=== PATIENT | male | born 1965 | race Caucasian/White ===

== ENCOUNTER 2016-09-15 18:56 | Emergency (ER) | payer BC ==
[~2016-09-15] VITALS: Ht 180.3 cm; Wt 105.0 kg
[~2016-09-15 18:56] MED LIST: HYDR-3583 PO; HYDR50TA94 PO; LEVA500T PO; METR-1 PO; OXYC1TAB36 PO; PAXI20TA PO; VALS160T4 PO; XANA2TAB2 PO
[2016-09-15 18:57] VITALS: BP 139/86; PULSE 72; RESP 24; TEMP 97.7; O2SAT 93
[2016-09-15] MEDS ORDERED: SODIUM CHLOR 0.9% 1000 ML INJ 1,000 ML IV SCH (21:50)
--- NOTE | 2016-09-15 21:58 | PD ---
HPI Chief Complaint: Flank/Kidney Pain Time Seen by Provider: 21:50 Travel History International Travel<30 days: No Contact w/Intl Traveler<30days: No Traveled to known affect area: No History of Present Illness HPI Patient is a 51-year-old male who presents to emergency room with complaints of flank pain. He reports that he was at work today and reports that around 2:30 PM, he had severe pain to his right flank. Patient reports that his flank plain did radiate to his groin, reports that pain has been intermittent in nature. Reports history of kidney stones in the past - reports that he has past his a kidney stone in the past before and did not require urological intervention. Patient with no fevers chills, denies any nausea vomiting this time. Patient denies any dysuria, hematuria, urinary urgency or frequency. PFSH Past Medical History Hx Anticoagulant Therapy: Yes Blood Disorders: No Anxiety: Yes Depression: Yes Heart Rhythm Problems: No Cancer: No Cardiovascular Problems: Yes (HTN) High Cholesterol: No Chemotherapy: No Chest Pain: No Congestive Heart Failure: No Cerebrovascular Accident: No Diabetes: No Diverticulitis: Yes Endocrine: No Gastrointestinal Disorders: Yes (DIVERITICLITIS) Genitourinary: No Hypertension: Yes Immune Disorder: No Implanted Vascular Access Dvce: No Musculoskeletal: No Neurologic: No Psychiatric: Yes Reproductive: No Respiratory: No Tetanus Vaccination: < 5 Years Influenza Vaccination: No Past Surgical History Surgical History: No Previous Surgery Social History Alcohol Use: No Tobacco Use: Yes (ppd-1 2ppd) Substance Use: No Allergies-Medications (Allergen,Severity, Reaction): Coded Allergies: Penicillin (Verified Allergy, Severe, SWELLING, 09/15/16) Reported Meds & Prescriptions Reported Meds & Active Scripts Active Ibuprofen 600 Mg Tab 600 Mg PO Q6H PRN Oxycodone-Acetaminophen 10-325 mg Tab 1 Tab PO Q6H PRN Flagyl (Metronidazole) 500 Mg Tab 500 Mg PO TID Levaquin (Levofloxacin) 500 Mg Tab 500 Mg PO DAILY Reported Hydrocodone-Acetaminophen 10-325 mg Tab 1 Tab PO Q6H PRN Valsartan-Hydrochlorothiazide 160-12.5 Mg Tab 1 Tab PO DAILY Paxil (Paroxetine HCl) 20 Mg Tab 20 Mg PO DAILY Xanax (Alprazolam) 2 Mg Tab 2 Mg PO HS PRN Hydroxyzine HCl 50 Mg Tab 50 Mg PO HS Review of Systems General / Constitutional: No: Fever Eyes: No: Visual changes HENT: No: Headaches Cardiovascular: No: Chest Pain or Discomfort Respiratory: No: Shortness of Breath Gastrointestinal: No: Abdominal Pain Genitourinary: Positive: Flank Pain, No: Dysuria Musculoskeletal: No: Pain Skin: No Rash Neurologic: No: Weakness Psychiatric: No: Depression Endocrine: No: Polydipsia Hematologic/Lymphatic: No: Easy Bruising Physical Exam Narrative GENERAL: Mild distress SKIN: Focused skin assessment warm/dry. HEAD: Atraumatic. Normocephalic. EYES: Pupils equal and round. No scleral icterus. No injection or drainage. ENT: No nasal bleeding or discharge. Mucous membranes pink and moist. NECK: Trachea midline. No JVD. CARDIOVASCULAR: Regular rate and rhythm. No murmur appreciated. RESPIRATORY: No accessory muscle use. Clear to auscultation. Breath sounds equal bilaterally. GASTROINTESTINAL: Abdomen soft, non-tender, nondistended. Patient with right- sided flank pain MUSCULOSKELETAL: No obvious deformities. No clubbing. No cyanosis. No edema. NEUROLOGICAL: Awake and alert. No obvious cranial nerve deficits. Motor grossly within normal limits. Normal speech. PSYCHIATRIC: Appropriate mood and affect; insight and judgment normal. Data Data Last Documented VS Vital Signs Date Time Temp Pulse Resp B/P Pulse Ox O2 Delivery O2 Flow Rate FiO2 09/15/16 21:50 18 09/15/16 18:57 97.7 72 139/86 93 Room Air Orders Complete Blood Count With Diff (09/15/16 21:50) Comprehensive Metabolic Panel (09/15/16 21:50) Urinalysis - C+S If Indicated (09/15/16 21:50) Ct Abd/Pel W/O Iv Contrast (09/15/16 21:50) Iv Access Insert/Monitor (09/15/16 21:50) Ecg Monitoring (09/15/16 21:50) Morphine Inj (Morphine Inj) (09/15/16 22:00) Ondansetron Inj (Zofran Inj) (09/15/16 22:00) Sodium Chlor 0.9% 1000 Ml Inj (Ns 1000 M (09/15/16 21:50) Sodium Chloride 0.9% Flush (Ns Flush) (09/15/16 22:00) Ketorolac Inj (Toradol Inj) (09/16/16 00:00) Labs Laboratory Tests Test 09/15/16 09/15/16 22:30 22:50 White Blood Count 9.0 TH/MM3 Red Blood Count 5.08 MIL/MM3 Hemoglobin 15.1 GM/DL Hematocrit 44.0 % Mean Corpuscular Volume 86.7 FL Mean Corpuscular Hemoglobin 29.7 PG Mean Corpuscular Hemoglobin 34.3 % Concent Red Cell Distribution Width 14.1 % Platelet Count 235 TH/MM3 Mean Platelet Volume 8.7 FL Neutrophils (%) (Auto) 48.0 % Lymphocytes (%) (Auto) 34.2 % Monocytes (%) (Auto) 12.7 % Eosinophils (%) (Auto) 4.1 % Basophils (%) (Auto) 1.0 % Neutrophils # (Auto) 4.3 TH/MM3 Lymphocytes # (Auto) 3.1 TH/MM3 Monocytes # (Auto) 1.1 TH/MM3 Eosinophils # (Auto) 0.4 TH/MM3 Basophils # (Auto) 0.1 TH/MM3 CBC Comment DIFF FINAL Differential Comment Sodium Level 137 MEQ/L Potassium Level 3.7 MEQ/L Chloride Level 102 MEQ/L Carbon Dioxide Level 26.5 MEQ/L Anion Gap 9 MEQ/L Blood Urea Nitrogen 18 MG/DL Creatinine 0.92 MG/DL Estimat Glomerular Filtration 86 ML/MIN Rate Random Glucose 78 MG/DL Calcium Level 9.0 MG/DL Total Bilirubin 0.5 MG/DL Aspartate Amino Transf 82 U/L (AST/SGOT) Alanine Aminotransferase 53 U/L (ALT/SGPT) Alkaline Phosphatase 53 U/L Total Protein 7.2 GM/DL Albumin 3.6 GM/DL Urine Color YELLOW Urine Turbidity CLEAR Urine pH 5.5 Urine Specific [place] 1.022 Urine Protein NEG mg/dL Urine Glucose (UA) NEG mg/dL Urine Ketones NEG mg/dL Urine Occult Blood NEG Urine Nitrite NEG Urine Bilirubin NEG Urine Urobilinogen LESS THAN 2.0 MG/DL Urine Leukocyte Esterase NEG Urine RBC 1 /hpf Urine WBC 1 /hpf Microscopic Urinalysis Comment CULT NOT INDICATED MDM Medical Decision Making Medical Screen Exam Complete: Yes Emergency Medical Condition: Yes Interpretation(s) Vital Signs Date Time Temp Pulse Resp B/P Pulse Ox O2 Delivery O2 Flow Rate FiO2 09/15/16 21:50 18 09/15/16 18:57 97.7 72 24 139/86 93 Room Air Differential Diagnosis Pyelonephritis, kidney stones, cystitis, muscle strain Narrative Course 51-year-old male who presents to emergency room with complaints of right-sided flank pain which started around 2:30 PM this afternoon. Patient reports a flank pain is radiating to his groin, reports that he has intermittent symptoms of radiating pain. Patient reports that he has had kidney stones in the past, reports that his symptoms are similar as well. Patient reports that he has passed his previous stone and did not require urological intervention. He does have history of chronic pain and does take chronic pain medications, he did take oxycodone 10 mg at home with no relief of symptoms UA ordered, labs including BMP ordered to evaluate for renal function. CT of abdomen and pelvis ordered to evaluate for kidney stone vs pyelonephritis CBC & BMP Diagram 09/15/16 22:30 Last Impressions Abdomen/Pelvis CT 09/15/16 2150 Signed Impressions: Service Date/Time: Thursday, September 15, 2016 21:53 - CONCLUSION: 1. Multiple calcified nonobstructing bilateral renal calculi. 2. No acute obstructive uropathy. 3. Bilateral inguinal hernias with the right containing a normal appendix in the left containing only fat. 4. Uncomplicated colonic diverticulosis. 5. Degenerative changes, multilevel spinal stenoses and scoliosis of the lumbar spine. 6. Enlarged prostate with central calcifications. Dave Chavira MD copy of ct report given to patient and I reviewed all incidental findings in detail. patient understands need to follow up with all findings from today. signs and symptoms of when to return to ER was reviewed with patient in detail Diagnosis Primary Impression: Flank pain Additional Impressions: Hyperglycemia Inguinal hernia recurrent bilateral Qualified Code: K40.21 - Bilateral recurrent inguinal hernia without obstruction or gangrene Diverticulosis Qualified Code: K57.90 - Diverticulosis of intestine without bleeding, unspecified intestinal tract location Degenerative arthritis Qualified Code: M47.816 - Osteoarthritis of lumbar spine, unspecified spinal osteoarthritis complication status Enlarged prostate prostate calcification Patient Instructions: Narcotic given in the ED, General Instructions Additional Instructions: Please follow up with your primary care doctor Please bring your CT report to doctor's office for follow-up and all incidental findings from today Return to the emergency room as needed Return to the emergency room if symptoms return or persist Med/Other Pt SpecificInfo: Prescription(s) given Scripts Hydrocodone-Acetaminophen (Lortab)5-325 Mg Tab1 Tab PO Q4H PRN (PAIN) #6 TAB Ref 0 Prov:Yana Mark DO 09/16/16 Ibuprofen 600 Mg [id number] Mg PO Q6H PRN (Pain/Inflammation) #40 TAB Ref 0 Prov:Yana Mark DO 09/15/16 Disposition: 01 DISCHARGE HOME Condition: Stable Yana Mark DO Sep 15, 2016 21:58
[2016-09-15] MEDS ORDERED: SODIUM CHLORIDE 0.9% FLUSH 10 ML FLUSH IV FLUSH PRN (22:00)
[2016-09-15] MEDS ORDERED: ONDANSETRON HCL 4 MG/2 ML VIAL IVP ONE (22:00)
[2016-09-15] MEDS ORDERED: MORPHINE SULFATE 4 MG/ML INJ IV PUSH ONE (22:00)
--- NOTE | 2016-09-15 22:17 | RADRPT ---
EXAM DATE/TIME: 09/15/2016 21:53 [facility] COMPARISON: CT ABDOMEN & PELVIS W CONTRAST, May 28, 2016, 7:30. CT ABDOMEN & PELVIS W/O CONTRAST, January, 13:49. INDICATIONS : Right flank pain. ORAL CONTRAST: No oral contrast ingested. RADIATION DOSE: 29.62 CTDIvol (mGy) MEDICAL HISTORY : Renal calculi. Diverticulitis. Hypertension. SURGICAL HISTORY : None. ENCOUNTER: Initial ACUITY: 1 day PAIN SCALE: 7/10 LOCATION: Right flank TECHNIQUE: Volumetric scanning of the abdomen and pelvis was performed. Using automated exposure control and ad justment of the mA and/or kV according to patient size, radiation dose was kept as low as reasonably achievable to obtain optimal diagnostic quality images. FINDINGS: LOWER LUNGS: The visualized lower lungs are clear. LIVER: Homogeneous density without lesion. There is no dilation of the biliary tree. No calcified gallston es. SPLEEN: Normal size without lesion. PANCREAS: Within normal limits. KIDNEYS: Normal in size and shape. There is no mass or hydronephrosis. Multiple calcified nonobstructing bila teral renal calculi are noted with the largest within the upper pole on the right measuring 6 mm. ADRENAL GLANDS: Within normal limits. VASCULAR: There is no aortic aneurysm. BOWEL/MESENTERY: The stomach and small bowel demonstrate no acute abnormality. Uncomplicated colonic diverticulosis i s noted. There is no free intraperitoneal air or fluid. The appendix is normal, although it does exte nd into a right inguinal hernia. ABDOMINAL WALL: Within normal limits. RETROPERITONEUM: There is no lymphadenopathy. BLADDER: No wall thickening or mass. REPRODUCTIVE: The prostate is enlarged and contains central calcifications. INGUINAL: There are bilateral inguinal hernias with the right containing a normal appendix and the left contain ing only fat. MUSCULOSKELETAL: Degenerative changes, multilevel spinal stenoses and scoliosis of the lumbar spine are noted. CONCLUSION: 1. Multiple calcified nonobstructing bilateral renal calculi. 2. No acute obstructive uropathy. 3. Bilateral inguinal hernias with the right containing a normal appendix in the left containing only fat. 4. Uncomplicated colonic diverticulosis. 5. Degenerative changes, multilevel spinal stenoses and scoliosis of the lumbar spine. 6. Enlarged prostate with central calcifications. Dave Chavira MD on September 15, 2016 at 22:08 Board Certified Radiologist. This report was verified electronically.
[2016-09-15 22:58] LABS: AUTOMATED NEUTROPHIL # 4.3 TH/MM3 (1.8-7.7); BASOPHIL # 0.1 TH/MM3 (0-0.2); EOSINOPHIL # 0.4 TH/MM3 (0-0.4); EOSINOPHIL % 4.1 % (0.0-4.0); HEMO FLAGS DIFF FINAL; LYMPH % 34.2 % (9.0-44.0); LYMPHOCYTE # 3.1 TH/MM3 (1.0-4.8); MEAN CELL VOLUME 86.7 FL (80.0-100.0); MEAN CORPUSCULAR HEMOGLOBIN 29.7 PG (27.0-34.0); MEAN CORPUSCULAR HGB CONC 34.3 % (32.0-36.0); MONO % 12.7 % (0.0-8.0); PLATELET COUNT 235 TH/MM3 (150-450); RED BLOOD COUNT 5.08 MIL/MM3 (4.50-5.90); RED CELL DISTRIBUTION WIDTH 14.1 % (11.6-17.2)
[2016-09-15 23:09] LABS: ANION GAP 9 MEQ/L (5-15); AST (GOT) 82 U/L (15-37); BICARBONATE 26.5 MEQ/L (21.0-32.0); BLOOD UREA NITROGEN 18 MG/DL (7-18); CHLORIDE 102 MEQ/L (98-107); GLOMERULAR FILTRATION RATE 86 ML/MIN (>89); POTASSIUM 3.7 MEQ/L (3.5-5.1); SODIUM (NA) 137 MEQ/L (136-145)
[2016-09-15 23:13] LABS: ALKALINE PHOSPHATASE 53 U/L (45-117); ALT (GPT) 53 U/L (12-78); TOTAL BILIRUBIN ADULT 0.5 MG/DL (0.2-1.0)
[2016-09-15] MEDS ORDERED: IBUP-232 PO (23:58)
[2016-09-16] MEDS ORDERED: KETOROLAC TROMETHAMINE 30 MG/ML (IVP) VIAL IV PUSH ONE
[2016-09-16 00:07] LABS: BLOOD, URINE NEG (NEG); COMMENT (UR) CULT NOT INDICATED; CULTURE IF INDICATED CULT NOT INDICATED; GLUCOSE,URINE NEG (NEG); KETONE, URINE NEG (NEG); NITRITE,URINE NEG (NEG); PH, URINE 5.5 (5.0-8.5); URINE COLOR YELLOW (YELLW/STRAW)
[2016-09-16] MEDS ORDERED: HYDR-3533 PO (00:24)
[2016-09-16 00:51] VITALS: BP 113/72
== END 2016-09-16 00:53 | disposition home or self-care (01) ==
LOC: NEPA 18:56
DX: R10.9 Unspecified abdominal pain (principal); K40.21 Bilateral inguinal hernia, without obstruction or gangrene, recurrent; K57.90 Diverticulosis of intestine, part unspecified, without perforation or abscess without bleeding; M47.816 Spondylosis without myelopathy or radiculopathy, lumbar region; N40.1 Benign prostatic hyperplasia with lower urinary tract symptoms; N42.89 Other specified disorders of prostate; R73.9 Hyperglycemia, unspecified
CPT/HCPCS: 74176; 80053; 81001; 85025; 96374; 96375; 99284; J1885; J2270; J2405; J7030